=== PATIENT | male | born 1990 | race Caucasian/White ===

== ENCOUNTER 2021-08-10 23:08 | Emergency (ER) | payer OTHER ==
[2021-08-10] MEDS ORDERED: Sodium Chloride 0.9% 1,000 ML IV ONE (23:17)
[2021-08-10 23:52] LABS: ANION GAP 10.5 mmol/L (5-15); CHLORIDE,CL 104 mmol/L (98-107); SODIUM,NA 139 mmol/L (136-145)
== END 2021-08-11 00:33 | disposition home or self-care (01) ==
LOC: KA.ED 23:08
DX: K92.1 Melena (principal)
CPT/HCPCS: 36415; 80053; 85025; 99284; J7030

== ENCOUNTER 2023-11-12 19:50 | Emergency (ER) | payer OTHER ==
[2023-11-12] MEDS: Sodium Chloride 0.9% 10 ML Syringe FLUSH PRN (20:08)
[2023-11-12] MEDS ORDERED: Naloxone 0.4 MG/ML SDV IVPUSH PRN ×2 (20:10→22:27)
[2023-11-12 20:20] LABS: BASOPHILS ABSOLUTE AUTO 0.03 10^3/uL (0.00-0.10); BASOPHILS PERCENT AUTO 0.3 % (0.0-1.0); EOSINOPHILS PERCENT AUTO 8.2 % (1.0-3.0); HEMATOCRIT 41.7 % (40.0-52.0); HEMOGLOBIN 13.8 g/dL (13.0-17.0); IMMATURE GRAN ABSOLUTE AUTO 0.01 10^3/uL (0.00-0.50); IMMATURE GRAN PERCENT AUTO 0.1 % (0.0-5.0); LYMPHOCYTES ABSOLUTE AUTO 1.48 10^3/uL (1.00-4.00); LYMPHOCYTES PERCENT AUTO 17.2 % (20.0-40.0); MEAN CORPUSCULAR HEMOGLOBIN 29.5 pg (27.0-31.0); MEAN CORPUSCULAR HGB CONC 33.1 g/dL (32.0-36.0); MEAN CORPUSCULAR VOLUME 89.1 fL (82.0-92.0); MEAN PLATELET VOLUME 10.6 fL (7.4-10.4); MONOCYTES ABSOLUTE AUTO 0.91 10^3/uL (0.10-0.80); MONOCYTES PERCENT AUTO 10.6 % (2.0-8.0); NEUTROPHILS ABSOLUTE AUTO 5.45 10^3/uL (2.50-7.00); NEUTROPHILS PERCENT AUTO 63.6 % (50.0-70.0); PLATELET COUNT,PLT 263 10^3/uL (150-400); RED BLOOD CELL COUNT 4.68 10^6/uL (4.50-6.00); RED CELL DISTRIBUTION WIDTH 12.4 % (11.5-14.5); WHITE BLOOD CELL COUNT,WBC 8.58 10^3/uL (5.00-10.00)
[2023-11-12] MEDS: HYDROmorphone 1 MG/ML Syringe IVPUSH ONE ×2 (20:20→22:32)
[2023-11-12] MEDS: Ondansetron 4 MG/2 ML SDV IVPUSH ONE (20:20)
[2023-11-12 20:35] LABS: ALANINE AMINOTRANSFERASE,ALT 99 U/L (14-63); ALBUMIN 3.54 g/dL (3.40-5.00); ALKALINE PHOSPHATASE 115 U/L (46-116); AMYLASE 37 U/L (25-125); ANION GAP 13.5 mmol/L (5-15); ASPARTATE AMNIOTRANSFERASE,AST 41 U/L (15-37); BILIRUBIN TOTAL 0.7 mg/dL (0.2-1.0); BLOOD UREA NITROGEN,BUN 8 mg/dL (7-18); CALCIUM 9.1 mg/dL (8.7-10.3); CARBON DIOXIDE,CO2 29.4 mmol/L (21.0-32.0); CHLORIDE,CL 101 mmol/L (98-107); CREATININE 0.99 mg/dL (0.51-1.17); GLUCOSE RANDOM 113 mg/dL (70-140); LIPASE 28 U/L (16-77); POTASSIUM,K 3.9 mmol/L (3.5-5.1); PROTEIN TOTAL,TP 7.9 g/dL (6.4-8.2); SODIUM,NA 140 mmol/L (136-145)
[2023-11-12 20:38] LABS: ESTIMATED GFR 102 mL/min (>=60)
[2023-11-12] MEDS: Iopamidol 755 Mg/ML 100 ML Bottle IV ONE (20:45)
[2023-11-12 20:48] LABS: APPEARANCE,URINE SLIGHTLY CLOUDY (CLEAR); BILIRUBIN,URINE SMALL (NEGATIVE); COLOR,URINE YELLOW (YELLOW); GLUCOSE,URINE NEGATIVE (NEGATIVE); KETONES,URINE NEGATIVE (NEGATIVE); LEUKOCYTE ESTERASE,URINE NEGATIVE (NEGATIVE); NITRITE,URINE NEGATIVE (NEGATIVE); OCCULT BLOOD,URINE NEGATIVE (NEGATIVE); PROTEIN,URINE NEGATIVE (NEGATIVE)
[2023-11-12] MEDS: Sodium Chloride 0.9% 1,000 ML IV ONE (20:55)
[2023-11-12] MEDS: Sodium Chloride 0.9% 50 ML IV SCH (20:56)
== END 2023-11-12 22:42 ==
LOC: KA.ED 19:50 → SUPCPDRO 19:50 → KA.ED 22:42
DX: K81.9 Cholecystitis, unspecified (principal)
CPT/HCPCS: 36415; 74177; 80053; 81003; 82150; 83605; 83690; 85025; 96361; 96374; 96375; 96376; 99285-25; J1170; J2405; J3490; J7030; Q9967